=== PATIENT | male | born 1980 | race Two or more races ===

== ENCOUNTER 2019-02-18 15:04 | Emergency (ER) | payer SELFPAY ==
[2019-02-18 15:11] VITALS: BP 144/94; PULSE 70; TEMP 97.6; BMI 30.7
--- NOTE | 2019-02-18 15:50 | PDOC ---
History of Present Illness - General Chief Complaint: Toothache Stated Complaint: TOOTHACHE Time Seen by Provider: 02/18/19 15:30 History Source: Patient Exam Limitations: No Limitations - History of Present Illness Initial Comments: 02/18/19 15:48 38 yo M w/ no sig PMHx comes in c/o sudden onset of L upper jaw wisdom toothache for the past 2 days. No other complaints today. Pt took motrin, tylenol which only help temporarily. (+)tactile fever, no chills, no NVD, no facial swelling. Pt does not have a dentist, has not seen one in years. Past History - Past Medical History Allergies/Adverse Reactions: Allergies Allergy/AdvReac Type Severity Reaction Status Date / Time No Known Allergies Allergy Verified 02/18/19 15:11 Home Medications: Ambulatory Orders Amoxicillin - [Amoxicillin 500mg Capsule -] 500 mg PO TID #21 capsule 02/18/19 Ibuprofen 600 mg PO TID #18 tablet 02/18/19 COPD: No - Suicide/Smoking/Psychosocial Hx Smoking History: Never smoked Review of Systems - Review of Systems Able to Perform ROS?: Yes Constitutional: No: Chills, Fever, Malaise, Night Sweats HEENTM: No: Eye Pain, Recent change in vision, Throat Pain Respiratory: No: Cough, Shortness of Breath Cardiac (ROS): No: Chest Pain, Palpitations, Chest Tightness ABD/GI: No: Diarrhea, Nausea, Vomiting, Abdominal cramping : No: Dysuria, Hematuria Musculoskeletal: No: Back Pain Integumentary: No: Rash Neurological: No: Headache, Numbness, Dizziness Psychiatric: No: Change in Appetite Endocrine: No: Unexplained Weight Loss *Physical Exam - Vital Signs Last Vital Signs Temp Pulse Resp BP Pulse Ox 97.6 F 70 18 144/94 99 02/18/19 15:02/18/19 15:02/18/19 15:02/18/19 15:02/18/19 15:09 - Physical Exam General Appearance: Yes: Nourished. No: Apparent Distress HEENT: positive: LUKE, Normal Voice, Symmetrical (no facial asymmetry, no facial swelling), Other (L upper jaw wisdom tooth with mild tenderness on palpation with mild surrounding gum erythema, no abscess seen, no fluctuance felt, no discharge, no pus.). negative: Pale Conjunctivae, Scleral Icterus (R) , Scleral Icterus (L) Neck: positive: Supple. negative: Decreased range of motion, Tender midline Respiratory/Chest: negative: Respiratory Distress, Accessory Muscle Use Cardiovascular: positive: Regular Rate Musculoskeletal: positive: Normal Inspection. negative: CVA Tenderness, Decreased Range of Motion Extremity: positive: Normal Capillary Refill, Normal Inspection, Normal Range of Motion. negative: Tender, Pedal Edema Integumentary: positive: Normal Color, Dry. negative: Jaundice, Rash Neurologic: positive: Fully Oriented, Alert, Normal Mood/Affect Medical Decision Making - Medical Decision Making 02/18/19 15:54 38 yo M w/ wisdom toothache with mild gingivitis. WIll give amoxicillin, motrin , tylenol and dental follow up. NO signs of abscess Return for worsening/concerning symptoms Pt verbalizes understanding and agrees with plan *DC/Admit/Observation/Transfer Diagnosis at time of Disposition: Toothache - Discharge Dispostion Disposition: HOME Condition at time of disposition: Stable - Prescriptions Prescriptions: Amoxicillin - [Amoxicillin 500mg Capsule -] 500 mg PO TID #21 capsule Ibuprofen 600 mg PO TID #18 tablet - Referrals - Patient Instructions Printed Discharge Instructions: DI for Dental Pain Additional Instructions: Puede ir al dentista el Adria a 8;30. Va a [facility], [address] [place] [address] y [facility]. Regresa en javier que de empeoran geno simtomas. - Post Discharge Activity
== END 2019-02-18 17:17 | disposition home or self-care (01) ==
LOC: JER 15:04
DX: K08.89 Other specified disorders of teeth and supporting structures (principal); K05.10 Chronic gingivitis, plaque induced
CPT/HCPCS: 99281-25